=== PATIENT | male | born 1980 | race Caucasian/White ===

== ENCOUNTER → 2016-03-15 | Outpatient (CLI) | payer BC | LOC: LAB 07:38 | DX: N46.8 Other male infertility (principal) ==

== ENCOUNTER → 2016-07-02 | Outpatient (CLI) | payer BC | LOC: RAD 12:00 | DX: N50.812 Left testicular pain (principal) ==

== ENCOUNTER → 2016-12-02 | Outpatient (CLI) | payer BC | LOC: LAB 08:43 | DX: N48.5 Ulcer of penis (principal) ==

== ENCOUNTER → 2019-06-20 | Outpatient (CLI) | payer SELFPAY | LOC: LAB 09:16 | DX: R05 Cough (principal) ==

== ENCOUNTER → 2020-10-16 | Outpatient (CLI) | payer SELFPAY | LOC: LAB 07:10 | DX: U07.1 COVID-19 (principal) ==

== ENCOUNTER 2023-03-01 09:52 | Emergency (ER) | payer SELFPAY ==
[~2023-03-01] VITALS: Ht 182.9 cm; Wt 149.3 kg
[2023-03-01] MEDS ORDERED: ASPIRIN E.C. 8181 MG PO (10:05)
[2023-03-01 11:30] VITALS: BP 147/103
== END 2023-03-01 11:31 | disposition home or self-care (01) ==
LOC: ED 09:52
DX: S01.81XA Laceration without foreign body of other part of head, initial encounter (principal); W01.118A Fall on same level from slipping, tripping and stumbling with subsequent striking against other sharp object, initial encounter

== ENCOUNTER → 2024-04-19 | Outpatient (CLI) | payer SELFPAY ==
[~2024-04-19] MED LIST: AMLODIPINE BESYL5 MG PO; ASPIRIN E.C. 8181 MG PO
[2024-04-19 09:21] LABS: BASO # 0.02 K/mm3 (0.02-0.10); EOS # 0.08 K/mm3 (0.04-0.40); EOS % 1.3 % (0.0-4.0); HEMATOCRIT 49.1 % (42.0-52.0); HEMOGLOBIN 16.3 g/dL (13.5-18.0); LYMPH# 2.48 K/mm3 (1.50-4.00); MEAN CELL VOLUME 88 fl (78-100); MEAN CORPUSCULAR HEMOGLOBIN 29 pg (27-31); MEAN CORPUSCULAR HGB CONC 33 g/dL (33-37); MEAN PLATELET VOLUME 9.9 fl (7.4-10.4); NEU # 2.99 K/mm3 (1.40-6.50); PLATELET COUNT 204 K/mm3 (130-400); RED BLOOD COUNT 5.57 M/mm3 (4.20-5.60); RED CELL DISTRIBUTION WIDTH 12.2 % (11.5-14.5); WHITE BLOOD COUNT 6.1 K/mm3 (4.8-10.8)
[2024-04-19 09:26] LABS: ALBUMIN 4.2 g/dL (3.5-5.0)
[2024-04-19 09:27] LABS: CALCIUM 9.4 mg/dL (8.3-10.5)
[2024-04-19 09:30] LABS: TOTAL BILIRUBIN 0.5 mg/dL (0.2-1.2)
== END ==
LOC: LAB 09:05
PROVIDERS: Nurse Practitioner Family
DX: I10 Essential (primary) hypertension (principal)